=== PATIENT | male | born 1995 | race Caucasian/White ===

== ENCOUNTER 2022-09-19 01:20 | Emergency (ER) | payer SELFPAY | END 2022-09-19 05:28 | disposition home or self-care (01) | LOC: MW.ED 01:20 | DX: S93.401A Sprain of unspecified ligament of right ankle, initial encounter (principal); Y04.0XXA Assault by unarmed brawl or fight, initial encounter | CPT/HCPCS: 70450; 70450-26; 70486; 70486-26; 73610-26-RT; 73610-RT; 99284 ==